=== PATIENT | female | born 1970 | race Caucasian/White ===

== ENCOUNTER 2016-07-15 12:39 | Emergency (ER) | payer BC ==
[2016-07-15 12:39] VITALS: BMI 29.5
[2016-07-15] MEDS ORDERED: Sodium Chloride 0.9% 1,000 ML IV ONE (13:20)
[2016-07-15] MEDS ORDERED: Iohexol 240 (50 ml) PO STA (13:20)
[2016-07-15 13:32] LABS: BASO % 0.5 % (0.0-2.0); EOS % 0.5 % (0.0-4.0); HEMATOCRIT 26.8 % (34.0-47.0); LYMPH # 1.3 K/uL (1.0-4.3); LYMPH % 13.9 % (20.0-40.0); MEAN CELL VOLUME 83.8 fL (81.0-99.0); MEAN CORPUSCULAR HEMOGLOBIN 26.6 pg (27.0-31.0); MEAN CORPUSCULAR HGB CONC 31.8 g/dL (33.0-37.0); MEAN PLATELET VOLUME 8.5 fL (7.2-11.7); MONO # 0.8 K/uL (0.0-0.8); MONO % 8.4 % (0.0-10.0); RED CELL DISTRIBUTION WIDTH 14.8 % (11.5-14.5); WHITE BLOOD COUNT 9.1 K/uL (4.8-10.8)
[2016-07-15] MEDS ORDERED: Iohexol 240 (50 ml) ONE (13:34)
[2016-07-15] MEDS ORDERED: Sodium Chloride 0.9% 1,000 ML ONE (13:34)
[2016-07-15 13:40] LABS: CHLORIDE 101 mmol/L (98-107); POTASSIUM 3.8 mmol/L (3.6-5.2); SODIUM 138 mmol/L (132-148)
[2016-07-15 13:42] LABS: BILIRUBIN,TOTAL 0.2 mg/dL (0.2-1.3); GFR AFRICAN-AMERICAN > 60
[2016-07-15 13:43] LABS: ALB/GLOB RATIO 1.3 (1.0-2.1); ALKALINE PHOSPHATASE 73 U/L (38-126); ALT/SGPT 22 U/L (9-52); AST/SGOT 21 U/L (14-36); BLOOD UREA NITROGEN 12 mg/dL (7-17); CALCIUM 8.3 mg/dl (8.6-10.4); CARBON DIOXIDE 23 mmol/L (22-30); GLUCOSE,RANDOM 131 mg/dL (65-105); TOTAL PROTEIN 6.8 g/dL (6.3-8.3)
[2016-07-15 13:59] LABS: RBC URINE 4 /hpf (0-3); URINE BACTERIA RARE (<OCC); URINE BILIRUBIN NEGATIVE (NEGATIVE); URINE BLOOD 1+ (NEGATIVE); URINE COLOR Yellow (YELLOW); URINE GLUCOSE (UA) NORMAL (Normal); URINE KETONE NEGATIVE (NEGATIVE); URINE LEUKOCYTE ESTERASE NEG Leu/uL (Negative); URINE PROTEIN NEGATIVE (NEGATIVE); URINE UROBILINOGEN NORMAL mg/dL (0.2-1.0); WBC URINE < 1 /hpf (0-5)
[2016-07-15] MEDS ORDERED: Iodixanol 320 MG/ML 100 ML BOTTLE IV ONE (14:56)
--- NOTE | 2016-07-15 16:01 | CT ---
PROCEDURE: CT Abdomen and Pelvis with oral and IV contrast. HISTORY: abd pain, RLQ COMPARISON: None available TECHNIQUE: Contiguous axial images of the abdomen and pelvis. Oral and IV contrast was administered. Coronal and Sagittal reformats generated and reviewed. Contrast dose: 100 mL Visipaque Radiation dose: Total exam DLP = 1141.33 MGy-cm. This CT exam was performed using one or more of the following dose reduction techniques: Automated exposure control, adjustment of the mA and/or kV according to patient size, and/or use of iterative reconstruction technique. FINDINGS: LOWER THORAX: No visible consolidation, pleural effusion, or pneumothorax. LIVER: Hypoattenuation liver compatible with hepatic steatosis. GALLBLADDER AND BILE DUCTS: Unremarkable. PANCREAS: 3 mm too small to characterize pancreatic body hypodensity, too small to characterize (series 3, image 59). SPLEEN: Unremarkable. ADRENALS: Unremarkable. KIDNEYS AND URETERS: 8 mm right renal hypodensity, too small to characterize. No hydronephrosis or obstructing renal calculus. Absent left kidney. BLADDER: The urinary bladder appears unremarkable. REPRODUCTIVE: Uterus is present. APPENDIX: The appendix appears within normal limits of caliber. No secondary signs of acute appendicitis. BOWEL: The stomach is nondistended. The bowel loops appear within normal limits of caliber without evidence of intestinal obstruction. PERITONEUM: No significant free fluid. No definite free air. LYMPH NODES: No bulky lymphadenopathy identified. VASCULATURE: No aortic aneurysm. BONES: No acute osseous abnormality is detected. OTHER FINDINGS: 7 mm fat containing umbilical hernia. IMPRESSION: The appendix appears within normal limits of caliber. No secondary signs of acute appendicitis. 8 mm right renal hypodensity, too small to characterize ; statistically likely cysts. Absent left kidney, either surgically removed or congenitally absent; please note no surgical clips are evident. 3 mm too small to characterize pancreatic body hypodensity, too small to characterize. Hepatic steatosis. 7 mm fat containing umbilical hernia.
[2016-07-15 16:21] VITALS: BP 116/70; PULSE 63; RESP 18; TEMP 97.5; O2SAT 100
--- NOTE | 2016-07-15 16:52 | C.PDOC ---
History Of Present Illness 46-year-old female, PMHx cerebral aneurysm, presents to the emergency department with complaints of right sided abdominal pain. Patient states she has been experiencing pain in right abdomen (L>U), that radiates to right flank. Pt notes a Hx of one kidney. States she has not experienced this pain in the past. Denies vomiting, fevers, chills, shortness of breath, symptoms, or other associated symptoms. Time Seen by Provider: 07/15/16 13:07 Chief Complaint (Nursing): Abdominal Pain History Per: Patient History/Exam Limitations: no limitations Onset/Duration Of Symptoms: Days Current Symptoms Are (Timing): Still Present Past Medical History Reviewed: Historical Data, Nursing Documentation, Vital Signs Vital Signs: Last Vital Signs Temp 97.5 F L 07/15/16 16:20 Pulse 63 07/15/16 16:20 Resp 18 07/15/16 16:20 BP 116/70 07/15/16 16:20 Pulse Ox 100 07/15/16 17:09 - Medical History Other PMH: SAH Rt sided weakness >> resolved Other Surgeries: SAH with surg 10 y/o Family History: States: No Known Family Hx - Social History Hx Tobacco Use: No Hx Alcohol Use: No Hx Substance Use: No Review Of Systems Except As Marked, All Systems Reviewed And Found Negative. Constitutional: Negative for: Fever, Chills Cardiovascular: Negative for: Chest Pain Respiratory: Negative for: Shortness of Breath Gastrointestinal: Positive for: Abdominal Pain. Negative for: Vomiting Genitourinary: Negative for: Dysuria, Frequency, Vaginal Discharge, Vaginal Bleeding Musculoskeletal: Positive for: Back Pain Skin: Negative for: Rash Physical Exam - Physical Exam Appears: Non-toxic, No Acute Distress Skin: Warm, Dry, No Rash Head: Atraumatic, Normacephalic Nose: Normal Oral Mucosa: Moist Cardiovascular: Rhythm Regular, No Murmur Respiratory: Normal Breath Sounds, No Rales, No Rhonchi Gastrointestinal/Abdominal: Soft, Tenderness (upper/lower), No Mass, No Guarding , No Rebound Extremity: Normal ROM, No Pedal Edema Neurological/Psych: Oriented x3, Normal Speech, Normal Cognition ED Course And Treatment - Laboratory Results Result Diagrams: 07/15/16 13:29 07/15/16 13:29 O2 Sat by Pulse Oximetry: 100 - CT Scan/US CT Other Rad Studies (CT/US): Radiology Report Reviewed (see report) Progress Note: Labs CT IVF and toradol ordered Medical Decision Making Medical Decision Making: Pt remained stable in the ED. Abd pain slowly resolved Abd continued to be soft without guarding Lab and CT results discussed with pt and family Testing unremarkable in the ED (pt knew she only had one kidney) Plan dfc home PCP follow up Disposition Counseled Patient/Family Regarding: Diagnosis, Need For Followup - Disposition Referrals: Zack Ro MD [Medical Doctor] - Disposition: HOME/ ROUTINE Disposition Time: 16:50 Condition: GOOD Additional Instructions: Follow up with PMD this week Return to the ED for any new or worsening symptoms Prescriptions: Dicyclomine [Bentyl] 1 tab PO TID PRN #30 tab PRN Reason: .abd pain Instructions: Abdominal Pain (ED) - Clinical Impression Clinical Impression: Abdominal pain - Scribe Statement The provider has reviewed the documentation as recorded by the Jesus Yadav All medical record entries made by the Eugenieibтатьяна were at my direction and personally dictated by me. I have reviewed the chart and agree that the record accurately reflects my personal performance of the history, physical exam, medical decision making, and the department course for this patient. I have also personally directed, reviewed, and agree with the discharge instructions and disposition.
== END 2016-07-15 17:06 | disposition home or self-care (01) ==
LOC: C.ER 12:39
DX: R10.9 Unspecified abdominal pain (principal)
CPT/HCPCS: 74177; 80053; 81001; 83690; 84703; 85025; 96374; 96375; 99285; J1885; J7040; Q9966; Q9967

== ENCOUNTER 2018-01-19 01:28 | Emergency (ER) | payer BC ==
[2018-01-19 01:28] VITALS: BMI 29.5
[2018-01-19 01:44] VITALS: O2SAT 98
[2018-01-19] MEDS ORDERED: Oxycodone/Acetaminophen 5/325 mg Tab PO STA (02:32)
[2018-01-19] MEDS ORDERED: Oxycodone/Acetaminophen 5/325 mg Tab ONE (02:42)
--- NOTE | 2018-01-19 03:24 | C.PDOC ---
History Of Present Illness 47 year old female presents to the ED c/o right shoulder pain radiating to her right arm. 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 Patient denies injury, fall, trauma, headache, CP, SOB, weakness, numbness. Time Seen by Provider: 01/19/18 02:14 Chief Complaint (Nursing): Upper Extremity Problem/Injury History Per: Patient History/Exam Limitations: no limitations Onset/Duration Of Symptoms: Hrs Current Symptoms Are (Timing): Still Present Quality: "Pain" Severity: Mild Exacerbating Factor(s): Movement Recent travel outside of the [place]: No Additional History Per: Patient Past Medical History Reviewed: Historical Data, Nursing Documentation, Vital Signs Vital Signs: Last Vital Signs Temp 98.3 F 01/19/18 01:40 Pulse 86 01/19/18 01:40 Resp 18 01/19/18 01:40 BP 147/85 01/19/18 01:40 Pulse Ox 98 01/19/18 01:40 - Medical History PMH: No Chronic Diseases Surgical History: No Surg Hx Family History: States: Unknown Family Hx - Social History Hx Tobacco Use: No Hx Alcohol Use: No Hx Substance Use: No - Immunization History Hx Tetanus Toxoid Vaccination: No Hx Influenza Vaccination: No Hx Pneumococcal Vaccination: No Review Of Systems Constitutional: Negative for: Fever, Chills Eyes: Negative for: Vision Change Cardiovascular: Negative for: Chest Pain Respiratory: Negative for: Shortness of Breath Gastrointestinal: Negative for: Nausea, Vomiting Musculoskeletal: Positive for: Shoulder Pain, Arm Pain Skin: Negative for: Rash Neurological: Negative for: Headache Physical Exam - Physical Exam Appears: Non-toxic, No Acute Distress Skin: Normal Color, Warm, Dry Head: Atraumatic, Normacephalic Eye(s): bilateral: Normal Inspection Neck: Normal ROM, No Midline Cervical Tenderness, Supple Chest: Symmetrical Cardiovascular: Rhythm Regular Respiratory: Normal Breath Sounds, No Rales, No Rhonchi, No Wheezing Extremity: Normal ROM (painfull righ shoulder), Tenderness (diffuse rigth shoulder), Capillary Refill (< 2 seconds), No Deformity, No Swelling Pulses: Left Radial: Normal, Right Radial: Normal Neurological/Psych: Oriented x3, Normal Speech, Normal Motor, Normal Sensation Gait: Steady ED Course And Treatment O2 Sat by Pulse Oximetry: 98 (ON RA) Pulse Ox Interpretation: Normal - Other Rad Right shoulder X-ray X-Ray: Interpreted by Me, Viewed By Me Interpretation: Calcifications seen, no fx, no litic lesions Progress Note: Plan: - Percocet 1 tab PO. - Right shoulder X-ray. - Arm sling. - D/c home with Ortho follow up. Disposition - Disposition Referrals: Kishan Sutton III, MD [Staff Provider] - Disposition: HOME/ ROUTINE Disposition Time: 04:21 Condition: IMPROVED Additional Instructions: Follow up with PMD and Orthopedist within 1-2 days. Return to ED if feel worse. 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 - Scribe Statement The provider has reviewed the documentation as recorded by the Scribe Yovanny Eason All medical record entries made by the Scribe were at my direction and personally dictated by me. I have reviewed the chart and agree that the record accurately reflects my personal performance of the history, physical exam, medical decision making, and the department course for this patient. I have also personally directed, reviewed, and agree with the discharge instructions and disposition.
[2018-01-19 04:50] VITALS: BP 130/92; PULSE 90; RESP 20; TEMP 98.5
--- NOTE | 2018-01-19 07:40 | RAD ---
Date of service: 01/19/2018 PROCEDURE: Radiographs of the Right Shoulder three views HISTORY: pain COMPARISON: No prior. FINDINGS: BONES: No evidence of acute displaced fracture dislocation. Productive change at the medial inferior aspect of the coracoid process. JOINTS: Mild narrowing of the glenohumeral and acromioclavicular joint spaces. SOFT TISSUES: Punctate ossific/calcific densities adjacent to the greater tuberosity which may represent calcific tendinitis. In addition, punctate calcific/ossific density seen within the superior aspect of the right glenohumeral joint space which may represent a small loose osteochondral body. Productive change at the medial inferior aspect of the coracoid process. OTHER FINDINGS: Aortic atherosclerotic calcification present. IMPRESSION: Punctate ossific/calcific densities adjacent to the greater tuberosity which may represent calcific tendinitis. In addition, punctate calcific/ossific density seen within the superior aspect of the right glenohumeral joint space which may represent a small loose osteochondral body. Productive change at the medial inferior aspect of the coracoid process. Negative acute. If pain persists, consider MRI.
== END 2018-01-19 04:48 | disposition home or self-care (01) ==
LOC: C.ER 01:28
DX: M25.511 Pain in right shoulder (principal)